=== PATIENT | male | born 1945 | race Caucasian/White ===

== ENCOUNTER 2019-06-01 11:39 | Inpatient (IN) ==
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
[2019-06-01 12:56] LABS: Basophils # 0.1 K/mcL (0.0-0.2); Basophils % 1.2 %; Eosinophils # 0.5 K/mcL (0.0-0.6); Eosinophils % 5.2 %; Hematocrit 42.8 % (37.5-50.1); Immature Granulocytes % 0.3 % (0-4); Lymphocytes # 2.4 K/mcL (0.6-4.6); Lymphocytes % 25.9 %; Mean Corpuscular HGB Conc 32.7 g/dL (31.6-35.5); Mean Corpuscular Hemoglobin 31.7 pg (28.0-33.3); Mean Corpuscular Volume 97.1 fL (83.0-100.0); Mean Platelet Volume 10.7 fL (9.4-12.4); Monocytes # 0.9 K/mcL (0.0-1.3); Monocytes % 9.1 %; Neutrophils # 5.5 K/mcL (1.6-8.9); Platelet Count 231 K/mcL (140-400); Red Blood Count 4.41 M/mcL (4.19-5.50); Red Cell Distribution Width 13.8 % (11.5-14.5); Segmented Neutrophils % 58.3 %; White Blood Count 9.4 K/mcL (4.3-11.1)
[2019-06-01] MEDS ORDERED: Piperacillin/Tazobactam 3.375 GM in 0.9 % Sodium Chloride Mini Bag 100 ML IVPB ONE (13:02)
[2019-06-01 13:14] LABS: BUN/Creatinine Ratio 23 (6-26); Blood Urea Nitrogen 65 mg/dL (8-23); C-Reactive Protein < 5 mg/L (Less than 10); Calcium 9.9 mg/dL (8.6-10.3); Carbon Dioxide 28 mEq/L (23-29); Chloride 103 mEq/L (98-107); Glucose 125 mg/dL (70-105); Osmolality,Calculated 310 (280-300); Potassium 4.3 mEq/L (3.5-5.1); Sodium 140 mEq/L (136-145); eGFR For African Americans 27 (> 60); eGFR For Non-African Americans 22 (> 60)
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
[2019-06-01] MEDS ORDERED: Naloxone 0.4 MG/ML INJ IVP PRN ×2 (15:30→15:31)
[2019-06-01] MEDS ORDERED: Ondansetron 4 MG/2 ML VIAL IVP PRN (15:30)
[2019-06-01] MEDS ORDERED: *HR* HYDROcodone/Acet 5/325 mg TABLET PO PRN (15:31)
[2019-06-01] MEDS ORDERED: traMADol 50 MG TABLET PO PRN (15:31)
[2019-06-01] MEDS ORDERED: Acetaminophen 325 MG TABLET PO PRN (15:31)
[2019-06-01] MEDS ORDERED: D5% in Water 1,000 ML IVC PRN (15:46)
[2019-06-01] MEDS ORDERED: Dextrose Gel 15 GM/37.5 ML TUBE PO PRN ×2 (15:46)
[2019-06-01] MEDS ORDERED: *HR* Dextrose 50 % in Water (Syg) 50 ML SYRINGE IVP PRN (15:46)
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
[2019-06-01] MEDS ORDERED: Vancomycin 1 EACH in 0.9 % Sodium Chloride 250 ML IVPB SCH (16:00)
[2019-06-01] MEDS: Insulin LISPRO 300 UNITS/3 ML VIAL SQ SCH (18:24)
[2019-06-01] MEDS: Ringers Solution, Lactated 1,000 ML IVC SCH (18:24)
[2019-06-01] MEDS ORDERED: Insulin LISPRO 300 UNITS/3 ML VIAL SQ SCH (21:00)
[2019-06-02 05:04] LABS: Basophils # 0.1 K/mcL (0.0-0.2); Basophils % 0.9 %; Eosinophils # 0.5 K/mcL (0.0-0.6); Eosinophils % 6.1 %; Hematocrit 35.3 % (37.5-50.1); Immature Granulocytes % 0.1 % (0-4); Lymphocytes # 2.3 K/mcL (0.6-4.6); Mean Corpuscular HGB Conc 32.9 g/dL (31.6-35.5); Mean Corpuscular Hemoglobin 32.4 pg (28.0-33.3); Mean Corpuscular Volume 98.6 fL (83.0-100.0); Mean Platelet Volume 10.6 fL (9.4-12.4); Monocytes # 0.9 K/mcL (0.0-1.3); Monocytes % 11.8 %; Neutrophils # 4.1 K/mcL (1.6-8.9); Platelet Count 172 K/mcL (140-400); Red Blood Count 3.58 M/mcL (4.19-5.50); Red Cell Distribution Width 13.7 % (11.5-14.5); Segmented Neutrophils % 52.1 %; White Blood Count 7.9 K/mcL (4.3-11.1)
[2019-06-02 05:07] LABS: Hemoglobin 11.6 g/dL (12.9-16.9)
[2019-06-02 05:10] LABS: INR 1.1; Prothrombin Time 12.2 Seconds (9.4-12.1)
[2019-06-02] MEDS: Piperacillin/Tazobactam 3.375 GM in 0.9 % Sodium Chloride Mini Bag 100 ML IVPB SCH ×2 (05:31→18:35)
[2019-06-02 05:47] LABS: Calcium 9.2 mg/dL (8.6-10.3); Magnesium 2.3 mg/dL (1.6-2.6); Potassium 4.1 mEq/L (3.5-5.1)
[2019-06-02] MEDS ORDERED: Vancomycin 1,000 MG, 0.9 % Sodium Chloride 1,000 ML IR ONE ×2 (06:00→21:35)
[2019-06-02] MEDS: Insulin LISPRO 300 UNITS/3 ML VIAL SQ SCH ×3 (08:00→18:27)
[2019-06-02] MEDS: Ringers Solution, Lactated 1,000 ML IVC SCH (08:53)
[2019-06-02] MEDS ORDERED: amLODIPine 5 MG TABLET PO SCH (09:00)
[2019-06-02] MEDS ORDERED: Aspirin Enteric Coated 81 MG Tablet PO SCH (09:00)
[2019-06-02 09:26] LABS: Estimated Average Glucose 143 mg/dl
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
--- NOTE | 2019-06-02 11:38 | Event Note ---
Date of Encounter: 06/02/19 Time of Encounter: 10:50 Nature of the procedure, risks versus benefits, potential complications of surgery, and condition discussed. All questions and concerns addressed. Consent signs and placed in chart.
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
[2019-06-02 16:15] LABS: Sodium, Urine 61.5 mEq/L
[2019-06-02 16:15] LABS: Sodium, Urine 57.1 mEq/L
--- NOTE | 2019-06-02 18:42 | Anesthesia Evaluation PreOp ---
Date of Encounter: 06/02/19 Time of Encounter: 18:40 - Past History Planned Operation: Right Ankle I & D Cardiac History: AK, HTN, Hyperlipidemia, Cardiac Surgery (CABG x 3 in 1996), Pacemaker/ICD (Medtronic pacemaker/AICD) Pulmonary History: Snore, LOU Dx (does not use CPAP) PROOFSHEET CORRECTOR History: CVA (denies residual deficit) Other Medical History: Renal (acute injury on CKD stage 3), Diabetes Type II Anesthesia History: No Prior Anesthetic Complications, Past Anesthesia Alcohol Use: none Drug use: none Medications and Allergies Allopurinol [Zyloprim 100 MG] 100 mg PO DAILY 06/01/19 [History] Aspirin Enteric Coated [Aspirin EC] 81 mg PO DAILY 06/01/19 [History] Atorvastatin [Lipitor] 80 mg PO HS 06/01/19 [History] Carvedilol 3.125 mg PO BID 06/01/19 [History] Cholecalciferol (D-3) [Vitamin D] 1,000 unit PO DAILY 06/01/19 [History] Furosemide [Lasix] 40 mg PO DAILY 06/01/19 [History] Insulin Glargine [Lantus] 2 unit SQ HS PRN 06/01/19 [History] Insulin Glargine [Lantus] 10 unit SQ QAM 06/01/19 [History] amLODIPine [Norvasc] 5 mg PO DAILY 06/01/19 [History] Allergy/AdvReac Type Severity Reaction Status Date / Time NSAIDS (Non-Steroidal Allergy Palpitation Verified 06/01/19 12:08 Anti-Inflamma s Sulfa (Sulfonamide Allergy Anaphylaxis Verified 06/01/19 12:08 Antibiotics) trihexyphenidyl [From Artane] Allergy Anaphylaxis Verified 06/01/19 12:08 - Meds/Allergy Pre-op Review Medications Reviewed: Yes Allergies Reviewed: Yes Beta Blockers on Current Med List: Yes If Beta Blockers taken, Date/Time (Last Dose taken): 06/02/2019 at 1835 Anesthesia Results - Labs 06/02/19 04:40 06/02/19 04:40 - Imaging EKG: report reviewed (06/02/2019 electronic atrial pacemaker, electronic ventricular pacemaker) Anesthesia Exam Vital Signs/O2 Sat/Glucose, Most Recent Temp Pulse Resp BP Pulse Ox 97.7 F 70 15 135/68 95 06/02/19 11:36 06/02/19 11:36 06/02/19 11:36 06/02/19 11:36 06/02/19 11:36 Blood Glucose* 86 Height: 5'3''/1.6m Weight: 179 lbs/81.5 kg NPO (# of Hours): 8 Pain Scale: 0 Pain Scale Used: Numeric (1 - 10) - HEENT Pupil (Motor): EOMI Mallampati: III Teeth: Normal Oral Opening: Greater than 3 - PROOFSHEET CORRECTOR LOC: Oriented PROOFSHEET CORRECTOR Motor: Normal RUE, Normal LUE, Normal RLE, Normal LLE, Normal Face PROOFSHEET CORRECTOR Sensory: Normal: RUE, LUE, Face, Deficit: RLE, LLE - Cardiac Rhythm: Regular Murmur: None - Pulmonary Breath Sounds: bilateral Clear Respiratory Effort: Symmetrical Anesthesia Assess/Plan ASA Score: 3 Level of consciousness: Cooperative, Oriented, Tranquil Anesthetic Plan: MAC Monitoring Plan: Standard Monitors
[2019-06-02] MEDS ORDERED: Bupivacaine-MPF 0.25% 10 ML VIAL ONE (18:47)
[2019-06-02] MEDS ORDERED: Vancomycin 1,000 MG VIAL ONE ×2 (18:47→20:24)
[2019-06-02 19:01] LABS: Clarity,Urine Clear (Clear); Color,Urine Yellow (Yellow)
[2019-06-02 19:02] LABS: Bilirubin,Urine Negative (Negative); Blood,Urine Large (Negative); Glucose,Urine (UA) Normal (Normal); Ketones,Urine Negative (Negative); Leukocyte Esterase,Urine Negative (Negative); Nitrite,Urine Negative (Negative); PH,Urine 5.5 pH Units (5.0-8.0); Protein,Urine Trace mg/dL (Neg-Trace); Urobilinogen,Urine Normal (Normal)
[2019-06-02] MEDS ORDERED: *HR* Propofol 200 MG/20 ML VIAL IVP ONE ×2 (19:08→19:09)
[2019-06-02] MEDS ORDERED: Lidocaine -MPF 2% 2 ML VIAL ONE (19:09)
[2019-06-02] MEDS ORDERED: Propofol 500 MG/50 ML INFUS..BTL ONE (20:23)
[2019-06-02] MEDS ORDERED: Lidocaine 1% 20 ML MDV ONE (20:38)
[2019-06-02] MEDS ORDERED: Calcium Gluconate 1,000 MG/10 ML VIAL ONE (20:41)
--- NOTE | 2019-06-02 21:12 | Operative Note ---
Date of procedure: 06/02/19 Pre-op diagnosis: hematoma right ankle Post-op diagnosis: same Procedure: incision and drainage right ankle hematoma Implants: none Complications: none Anesthesia: GETA Surgeon: Naveen Batista Was there an assistant press operator offset present: No Estimated blood loss (cc): 15 Specimen: none Condition: stable Disposition: PACU Procedure in Detail: Indications: 74-year-old male with trauma to the right ankle approximately 3 weeks ago developed a fluctuant area over the right medial ankle and is being brought to the operating room for an incision and drainage after having the nature of the procedure, risks versus benefits potential complications consequences of surgery and his condition discussed at length. No guarantees were made as to the outcome of any procedure and he understood that he would likely have a wound that would need to heal. All of his questions have been answered and the informed consent was signed. The right leg was scrubbed prepped and draped in the usual sterile fashion and the following procedure then began Incision and drainage of right ankle hematoma. Attention was directed to the medial aspect of the patient's right ankle where a #15 blade was used to make an incision proximal and distal to an eschar present on the medial aspect of the ankle and the incision was also made circumferentially around the eschar which measured approximately 2 cm x 1.5 cm and this area was excised. Dried clotted hematoma blood was expressed from the medial ankle and it appeared to be down to the deep fascia. Approximately 50cc of clotted hematoma blood was expressed from the medial aspect of the ankle. The site was irrigated with normal sterile saline which contained vancomycin. After irrigating the site and ensuring that all the hematoma had been removed retention sutures were placed proximally and distally and a 4 x 4 gauze was packed into the open medial ankle site. The patient tolerated the anesthesia and the procedure well escorted the recovery room with vital signs stable and vascular status intact to the right foot noted by instant capillary refill time to the digits of the right foot. He will return to the floor where he will be monitored and likely discharged tomorrow with outpatient follow-up.
[2019-06-02] MEDS ORDERED: Ondansetron 4 MG/2 ML VIAL IVP PRN (21:35)
[2019-06-02] MEDS ORDERED: Acetaminophen 325 MG TABLET PO PRN (21:35)
[2019-06-02] MEDS ORDERED: traMADol 50 MG TABLET PO PRN (21:35)
[2019-06-02] MEDS ORDERED: Vancomycin 1 EACH in 0.9 % Sodium Chloride 250 ML IVPB SCH (21:35)
[2019-06-02] MEDS ORDERED: D5% in Water 1,000 ML IVC PRN (21:35)
[2019-06-02] MEDS ORDERED: Naloxone 0.4 MG/ML INJ IVP PRN (21:35)
[2019-06-02] MEDS ORDERED: Dextrose Gel 15 GM/37.5 ML TUBE PO PRN ×2 (21:35)
[2019-06-02] MEDS ORDERED: *HR* HYDROcodone/Acet 5/325 mg TABLET PO PRN (21:35)
[2019-06-02] MEDS ORDERED: *HR* Dextrose 50 % in Water (Syg) 50 ML SYRINGE IVP PRN (21:35)
[2019-06-03 04:36] LABS: Hematocrit 34.2 % (37.5-50.1); Hemoglobin 11.1 g/dL (12.9-16.9); Mean Corpuscular HGB Conc 32.5 g/dL (31.6-35.5); Mean Corpuscular Hemoglobin 31.5 pg (28.0-33.3); Mean Corpuscular Volume 97.2 fL (83.0-100.0); Mean Platelet Volume 10.7 fL (9.4-12.4); Platelet Count 168 K/mcL (140-400); Red Blood Count 3.52 M/mcL (4.19-5.50); Red Cell Distribution Width 13.8 % (11.5-14.5); White Blood Count 7.3 K/mcL (4.3-11.1)
[2019-06-03 04:55] LABS: Potassium 3.8 mEq/L (3.5-5.1); Uric Acid 5.5 mg/dL (2.3-7.6)
[2019-06-03 04:56] LABS: Calcium 8.4 mg/dL (8.6-10.3)
[2019-06-03] MEDS ORDERED: Piperacillin/Tazobactam 3.375 GM in 0.9 % Sodium Chloride Mini Bag 100 ML IVPB SCH (06:00)
[2019-06-03] MEDS: Insulin LISPRO 300 UNITS/3 ML VIAL SQ SCH ×2 (07:52→11:53)
[2019-06-03] MEDS ORDERED: amLODIPine 5 MG TABLET PO SCH (09:00)
[2019-06-03] MEDS ORDERED: Aspirin Enteric Coated 81 MG Tablet PO SCH (09:00)
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
--- NOTE | 2019-06-03 10:38 | Physician Discharge Referral ---
Home Health/Hosp Referral Info Transfer to: Home Health Provider in Charge Post Discharge: PCP - Diagnosis (1) Traumatic hematoma of right foot Priority: Primary Status: Acute (2) Foot abscess, right Priority: Secondary Status: Suspected (3) Acute on chronic kidney failure Priority: Secondary Status: Acute (4) CAD (coronary artery disease) Priority: Secondary Status: Chronic (5) Diabetes Priority: Secondary Status: Chronic (6) DVT prophylaxis Priority: Secondary Status: Acute - Respiratory Orders Smoking Cessation: Smoking cessation has been advised. For more information, call the [place] Tobacco Quit Line at 9-906-BQBQ-NOW. - Diet/Nutrition Diet/Nutrition Orders: No Concentrated Sweets - Services Needed Following services are medically necessary services: Nursing, Home Health Aide, Physical Therapy, Occupational Therapy - Transfer Medications Prescriptions: Doxycycline 100 mg PO BID 5 Days #10 capsule Home Medications: Allopurinol [Zyloprim 100 MG] 100 mg PO DAILY 06/01/19 [History] Aspirin Enteric Coated [Aspirin EC] 81 mg PO DAILY 06/01/19 [History] Atorvastatin [Lipitor] 80 mg PO HS 06/01/19 [History] Carvedilol 3.125 mg PO BID 06/01/19 [History] Cholecalciferol (D-3) [Vitamin D] 1,000 unit PO DAILY 06/01/19 [History] Furosemide [Lasix] 40 mg PO DAILY 06/01/19 [History] Insulin Glargine [Lantus] 2 unit SQ HS PRN 06/01/19 [History] Insulin Glargine [Lantus] 10 unit SQ QAM 06/01/19 [History] amLODIPine [Norvasc] 5 mg PO DAILY 06/01/19 [History] Doxycycline 100 mg PO BID 5 Days #10 capsule 06/03/19 [Rx] Allergies/Adverse Reactions: Allergy/AdvReac Type Severity Reaction Status Date / Time NSAIDS (Non-Steroidal Allergy Palpitation Verified 06/01/19 12:08 Anti-Inflamma s Sulfa (Sulfonamide Allergy Anaphylaxis Verified 06/01/19 12:08 Antibiotics) trihexyphenidyl [From Artane] Allergy Anaphylaxis Verified 06/01/19 12:08 Certification: Further, I certify that my clinical findings support that this patient is homebound (i.e. absences from home require considerable and taxing effort and are for medical reasons or latter day services or infrequently or short duration when for other reasons) because: Homebound Reason: Patient requires assistance of a person or device to safely leave home Attestation: My signature below is to certify that this patient is under my care and that I, or nurse practitioner, or a physician's assistant tennis coach working with me, has a [id number] encounter with this patient.
[2019-06-03 11:03] VITALS: BP 113/63
--- NOTE | 2019-06-03 11:15 | Podiatry Progress Note ---
Date of Encounter: 06/03/19 Time of Encounter: 10:10 - Assessment and Plan (1) Foot abscess, right Current Visit: Yes Status: Suspected Assessment: -Post op day #1 incision and drainage hematoma by Dr. Batista on 06/02/2019 -Surgical wound noted right medial aspect of ankle, center left open, sutures intact distal and proximal with edges coapting, minimal oozing of blood distal aspect -PT/DP per Doppler -WBC 7.3, afebrile -ESR 28, CRP <5 -X-ray right ankle XR/XR ankle complete min 3V RT IMPRESSION: Moderate medial soft tissue swelling without acute osseous abnormality Plan: -Discharge today -Doxycycline 100 mg BID for 7 days -Social Service to set up Home Health for daily dressing changes -Follow up with Dr. Batista in Wound Care next week, please schedule appointment prior to discharge -Dressing changed Site flushed with sterile .9NS and pat dry, surgicel placed over site of oozing, center of surgical wound packed with plain packing, site covered with 4x4's and Kerlix, secured with NEHEMIAH (2) Diabetes Current Visit: Yes Status: Chronic Assessment: -Blood glucose 186 -Hgb A1c 6.6 Plan: -Tight glycemic control to prevent complications and promote healing, manage by internal medicine Qualifiers: Diabetes mellitus type: type 2 Diabetes mellitus fdc insulin use: with fdc use Diabetes mellitus complication status: with kidney complications Diabetes mellitus complication detail: with chronic kidney disease Chronic kidney disease stage: stage 3 (moderate) Qualified Code(s): E11.22 - Type 2 diabetes mellitus with diabetic chronic kidney disease; N18.3 - Chronic kidney disease, stage 3 (moderate); 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 Batista on 06/02/2019 Patient is alert and oriented x 3, no acute distress noted, well nourished resting in bed. Patient denies any chest pain, shortness of breath, or calf pain. He denies any fever, chills, n/v/d. Dressing dry and intact RLE. Objective - Vital Signs Vital Signs: Vital Signs Temp Pulse Resp BP Pulse Ox 06/03/19 11:00 97.9 F 75 16 113/63 95 06/03/19 06:40 97.8 F 69 16 143/73 96 06/03/19 03:22 98.3 F 69 15 126/68 94 06/03/19 00:40 97.8 F 72 17 128/70 94 06/02/19 23:40 97.9 F 71 17 125/70 94 06/02/19 22:40 98.1 F 70 17 129/70 93 06/02/19 22:10 98.0 F 70 17 150/75 94 06/02/19 21:40 97.9 F 70 17 148/75 95 06/02/19 19:38 98.1 F 67 15 153/74 95 06/02/19 11:36 97.7 F 70 15 135/68 95 Intake and Output 06/02/19 06/03/19 06/03/19 23:59 07:59 15:59 Output Total 400 / 400 Balance -15 -400 / -400 Output: Urine 400 / 400 Estimated Blood Loss Other: Meal jello Percent of Meal Consumed 100% Stool Size Moderate Stool Consistency soft Stool Characteristics Normal for Patient # Bowel Movements 1 Blood Glucose* 73 124 - Exam Exam: Constitutional: Alert and oriented x 3 male, no acute distress noted, well nourished Vascular: PT/DP pulses RLE obtained with Doppler, cap refill less than 3 seconds, skin warm from tibia to toes, no pain with calf squeeze Neurological: normal plantar reflex, abnormal proprioception, diminished protective sensation Dermatological: Surgical wound to right medial aspect of ankle with minimal oozing of blood noted from distal aspect of site, center of wound left open, sutures proximal and distal aspect intact and edges coapting, no drainage, some erythema noted periwound Musculoskeletal: 4/5 muscle strength - Lab Result Diagrams: 06/03/19 04:24 06/03/19 04:24 Labs: Abnormal lab results RBC 3.52 M/mcL (4.19-5.50) L 06/03/19 04:24 Hgb 11.1 g/dL (12.9-16.9) L 06/03/19 04:24 Hct 34.2 % (37.5-50.1) L 06/03/19 04:24 ESR 28 mm/hr (0-10) H 06/01/19 12:27 PT 12.2 Seconds (9.4-12.1) H 06/02/19 04:40 Chloride 109 mEq/L (98-107) H 06/03/19 04:24 BUN 50 mg/dL (8-23) H 06/03/19 04:24 Creatinine 2.62 mg/dL (0.70-1.30) H 06/03/19 04:24 Est GFR ( Amer) 29 (> 60) L 06/03/19 04:24 Est GFR (Non-Af Amer) 24 (> 60) L 06/03/19 04:24 Glucose 186 mg/dL (70-105) H 06/03/19 04:24 POC Glucose 124 mg/dL (70-99) H 06/03/19 07:49 Hemoglobin A1c 6.6 % (-5.6) H 06/02/19 04:40 Calculated Osmolality 308 (280-300) H 06/03/19 04:24 Calcium 8.4 mg/dL (8.6-10.3) L 06/03/19 04:24 Urine Blood Large (Negative) H 06/01/19 17:00 Urine Microscopic RBC 5-15 per hpf (0-3) H 06/01/19 17:00 Microalb/Creat Ratio 54 mcg/mg (Less than 30) H 06/02/19 15:59 Consult Discharge Plan - Plan Instructions: Diabetes Mellitus Type 2 in Adults (DC) Referrals: Melvina Otero MD [Primary Care Provider] - Naveen Batista DPM [Partnered Physician] - Prescriptions: Doxycycline 100 mg PO BID 5 Days #10 capsule
--- NOTE | 2019-06-03 12:24 | Nephrology Progress Note ---
Date of Encounter: 06/03/19 Time of Encounter: 12:19 - Assessment and Plan (1) Acute on chronic kidney failure Current Visit: Yes Status: Acute Per patients sister, he is CKD 3/4 with GFR in the 30's. GFR is 24 today better than his baseline. 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, encouraged a f/u with him after discharge. Previous labwork: 01/06/19 Scr 4.26 and GFR 14 11/21/18 Scr 4.22 and GFR 15 11/20/18 Scr 4.19 and GFR 15 It appears GFR is closer to where it has been in the last few months. Avoid nephrotoxins. Awaiting serum and urine studies. Retroperitoneal US completed. No need for ASSIGNMENT OFFICER today, but that could change depending on clinical picture. Avoid vancomycin if possible. Avoid Nsaids if possible. Will sign off please reconsult if needed. Qualifiers: Acute renal failure type: unspecified Chronic kidney disease stage: stage 3 (moderate) Qualified Code(s): N17.9 - Acute kidney failure, unspecified; N18.3 - Chronic kidney disease, stage 3 (moderate) (2) Right ankle pain Current Visit: Yes Status: Acute Per podiatry. Qualifiers: Chronicity: acute Qualified Code(s): M25.571 - Pain in right ankle and joints of right foot (3) CAD (coronary artery disease) Current Visit: Yes Status: Chronic Qualifiers: Coronary Disease-Associated Artery/Lesion type: unspecified vessel or lesion type [place] vs. transplanted heart: douglas heart Associated angina: without angina Qualified Code(s): I25.10 - Atherosclerotic heart disease of [place] coronary artery without angina pectoris (4) Diabetes Current Visit: Yes Status: Chronic Qualifiers: Diabetes mellitus type: type 2 Diabetes mellitus attending psychiatrist insulin use: with attending psychiatrist use Diabetes mellitus complication status: with kidney complications Diabetes mellitus complication detail: with chronic kidney disease Chronic kidney disease stage: stage 3 (moderate) Qualified Code(s): E11.22 - Type 2 diabetes mellitus with diabetic chronic kidney disease; N18.3 - Chronic kidney disease, stage 3 (moderate); 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 Denies chest pain or shortness of breath. Denies nausea, vomiting, diarrhea. Denies urinary symptoms. Objective - Vital Signs Vital signs: Vital Signs Temp Pulse Resp BP Pulse Ox 06/03/19 11:00 97.9 F 75 16 113/63 95 06/03/19 06:40 97.8 F 69 16 143/73 96 06/03/19 03:22 98.3 F 69 15 126/68 94 06/03/19 00:40 97.8 F 72 17 128/70 94 06/02/19 23:40 97.9 F 71 17 125/70 94 06/02/19 22:40 98.1 F 70 17 129/70 93 06/02/19 22:10 98.0 F 70 17 150/75 94 06/02/19 21:40 97.9 F 70 17 148/75 95 06/02/19 19:38 98.1 F 67 15 153/74 95 Intake and Output 06/02/19 06/03/19 06/03/19 23:59 07:59 15:59 Intake Total 250 / 250 Output Total 15 / 840 400 / 400 Balance -15 / 260 -400 / -150 250 / -150 Intake: IV Fluids 250 / 250 Vancocin 750 MG In 0.9 % Sodium 250 / 250 Chloride 250 ML @ 250 mls/hr IVPB ONCE ONE Rx#:[id number] Output: Urine 400 / 400 Estimated Blood Loss Other: Meal jello Percent of Meal Consumed 100% Stool Size Moderate Stool Consistency soft Stool Characteristics Normal for Patient # Bowel Movements 1 Blood Glucose* 73 124 149 - General Appearance General appearance: Present: well-developed, well-nourished EENT: Present: ATNC, hearing intact, vision intact Neck: Present: supple Respiratory: Present: clear Cardiology: Present: no edema, normal S1, normal S2 Gastrointestinal: Present: normoactive bowel sounds, no tenderness, no guarding Integumentary: Present: no rash, warm and dry Neurologic: Present: alert and oriented x3 Musculoskeletal: Present: no deformities, no erythema Psychiatric: Present: mood/affect appropriate, cooperative - Lab 06/03/19 04:24 06/03/19 04:24 Most recent lab results 06/03/19 04:24 Calcium 8.4 L Consult Discharge Plan - Plan Instructions: Diabetes Mellitus Type 2 in Adults (DC) Referrals: Melvina Otero MD [Primary Care Provider] - Naveen Batista DPM [Partnered Physician] - Prescriptions: Doxycycline 100 mg PO BID 5 Days #10 capsule
[2019-06-03] MEDS ORDERED: Aminoglycoside Consult 1 EACH MC ONE (15:04)
[2019-06-03] MEDS ORDERED: Insulin LISPRO 300 UNITS/3 ML VIAL SQ SCH (21:00)
--- NOTE | 2019-06-21 12:57 | Electrocardiograph Report ---
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
== END 2019-06-03 15:05 | disposition home health service (06) | DRG 571 ==
LOC: EMEROOARM 11:39 → 3BNU 11:39 → SUATTDRO 15:18 → 3NENU 16:25
PROVIDERS: ADMIT Internal Medicine; ATTEND Internal Medicine